=== PATIENT | female | born 1945 | race Caucasian/White ===

== ENCOUNTER → 2021-06-13 | Outpatient (CLI) | payer MEDICARE, BC | LOC: MC.RAD 14:00 | DX: Z12.31 Encounter for screening mammogram for malignant neoplasm of breast (principal); Z85.3 Personal history of malignant neoplasm of breast ==

== ENCOUNTER 2022-05-22 19:58 | Emergency (ER) | payer MEDICARE, BC ==
[~2022-05-22] VITALS: Ht 160 cm; Wt 88.6 kg
[~2022-05-22 19:58] MED LIST: ASPIRIN 81M81 MG/TA2 PO; BETAMETHASONE D15 G1 TP; COZAAR100 MG PO; CRESTOR20 MG PO; PATANOL OPHTHALM5 ML OU; VITAMIND3 5000 PO
[2022-05-22 20:01] VITALS: TEMP 98.4
[2022-05-22 20:32] LABS: BASO # 0.1 K/mm3 (0.0-0.2); BASO % 0.6 % (0.0-2.0); EOS # 0.1 K/mm3 (0.0-0.7); EOS % 1.4 % (0.0-4.0); GRAN # 5.3 K/mm3 (1.4-6.5); HEMOGLOBIN 14.3 g/dl (12.5-16.0); LYMPH # 2.6 K/mm3 (1.2-3.4); LYMPH % 29.9 % (20.0-51.0); MEAN CELL VOLUME 91 fl (80.0-100.0); MEAN CORPUSCULAR HEMOGLOBIN 30 pg (27-31); MEAN CORPUSCULAR HGB CONC 33 g/dl (33.0-37.0); MEAN PLATELET VOLUME 10.9 fl (7.4-10.4); MONO # 0.6 K/mm3 (0.1-0.6); MONO % 6.8 % (1.7-9.3); PLATELET COUNT 237 K/mm3 (130-400); RED BLOOD COUNT 4.82 M/mm3 (4.10-5.30); REDCELL DISTRIBUTION WIDTH-CV 12.8 % (11.5-14.5)
[2022-05-22 20:46] LABS: ALBUMIN 3.5 gm/dL (3.4-4.8); CALCIUM 9.6 mg/dL (8.4-10.2); CREATININE, serum 0.8 mg/dL (0.57-1.11); TOTAL PROTEIN 7.4 gm/dL (6.2-8.1)
[2022-05-22 21:05] LABS: TROPONIN-I 0.017 ng/mL (0.00-0.033); TSH w REFLEX 5.032 uIU/mL (0.350-4.940)
[2022-05-22 21:05] LABS: COLLECTION METHOD CLEAN CATCH
[2022-05-22 21:16] LABS: URINE APPEARANCE Cloudy (CLEAR/HAZY); URINE COLOR Amber (YELLOW); URINE GLUCOSE Negative (NEGATIVE); URINE KETONE Negative (NEGATIVE); URINE PROTEIN(semi-quant) 1+ (NEGATIVE)
[2022-05-22 21:17] LABS: URINE BLOOD 2+ (NEGATIVE); URINE NITRATE Negative (NEGATIVE); URINE UROBILINOGEN 0.2 E.U/dL (0.2-1.0)
[2022-05-22 22:18] VITALS: BP 154/78; PULSE 76
== END 2022-05-22 22:18 | disposition home or self-care (01) ==
LOC: COL.ER 19:58
PROVIDERS: Emergency Medicine
DX: R55 Syncope and collapse (principal); I10 Essential (primary) hypertension; E78.5 Hyperlipidemia, unspecified; Z20.822 Contact with and (suspected) exposure to COVID-19

== ENCOUNTER → 2022-06-04 | Outpatient (CLI) | payer MEDICARE, BC | LOC: COL.RAD 14:02 | DX: R42 Dizziness and giddiness (principal); R55 Syncope and collapse; Z82.3 Family history of stroke ==

== ENCOUNTER → 2023-06-19 | Outpatient (CLI) | payer MEDICARE, BC ==
[~2023-06-19] MED LIST changes: +Iohexol 300 - 10 ML VIAL ONE; +Lidocaine PF 2% (20 MG/ML) 2 ML VIAL ONE
== END ==
LOC: MHCPAIN 08:22
DX: M54.16 Radiculopathy, lumbar region (principal)
CPT/HCPCS: J1040; Q9967

== ENCOUNTER → 2024-01-20 | Outpatient (CLI) | payer MEDICARE, BC ==
[~2024-01-20] MED LIST changes: -Iohexol 300 - 10 ML VIAL ONE; -Lidocaine PF 2% (20 MG/ML) 2 ML VIAL ONE
== END ==
LOC: COL.RAD 08:43
DX: M47.26 Other spondylosis with radiculopathy, lumbar region (principal); M51.16 Intervertebral disc disorders with radiculopathy, lumbar region; M43.16 Spondylolisthesis, lumbar region; M48.061 Spinal stenosis, lumbar region without neurogenic claudication; M48.07 Spinal stenosis, lumbosacral region